=== PATIENT | female | born 1980 | race Caucasian/White ===

== ENCOUNTER → 2017-06-24 | Outpatient (CLI) | payer BC ==
[~2017-06-24] VITALS: Ht 165.1 cm; Wt 66.5 kg
[~2017-06-24] MED LIST: ALEVE 220MG220 MG PO; VOLTAREN SR25 MG/TAB PO
[2017-06-24 09:31] VITALS: BP 120/77; PULSE 53
[2017-06-24 10:35] VITALS: BP 123/75; PULSE 49
== END ==
LOC: COL.RAD 09:00
DX: M51.16 Intervertebral disc disorders with radiculopathy, lumbar region (principal); M48.061 Spinal stenosis, lumbar region without neurogenic claudication; M46.86 Other specified inflammatory spondylopathies, lumbar region
CPT/HCPCS: J3301

== ENCOUNTER → 2020-01-12 | Outpatient (CLI) | payer BC | LOC: MHCPAIN 10:20 | DX: M47.817 Spondylosis without myelopathy or radiculopathy, lumbosacral region (principal); M53.3 Sacrococcygeal disorders, not elsewhere classified; M54.5 Low back pain; G89.29 Other chronic pain | CPT/HCPCS: G0463 ==

== ENCOUNTER → 2020-01-24 | Outpatient (CLI) | payer BC | LOC: MHCPAIN 11:56 | DX: M47.817 Spondylosis without myelopathy or radiculopathy, lumbosacral region (principal); M54.5 Low back pain; G89.29 Other chronic pain ==

== ENCOUNTER → 2020-02-02 | Outpatient (CLI) | payer BC | LOC: MHCPAIN 14:42 | DX: M47.817 Spondylosis without myelopathy or radiculopathy, lumbosacral region (principal); M54.5 Low back pain; M53.3 Sacrococcygeal disorders, not elsewhere classified; G89.29 Other chronic pain | CPT/HCPCS: G0463 ==

== ENCOUNTER → 2020-02-14 | Outpatient (CLI) | payer BC | LOC: MHCPAIN 11:54 | DX: M47.817 Spondylosis without myelopathy or radiculopathy, lumbosacral region (principal); M54.5 Low back pain ==

== ENCOUNTER → 2020-03-02 | Outpatient (CLI) | payer BC | LOC: MHCPAIN 12:00 | DX: M47.817 Spondylosis without myelopathy or radiculopathy, lumbosacral region (principal); M54.5 Low back pain; M53.3 Sacrococcygeal disorders, not elsewhere classified; G89.29 Other chronic pain | CPT/HCPCS: G0463; J1100; J2250; J3010 ==

== ENCOUNTER → 2020-05-02 | Outpatient (CLI) | payer BC | LOC: MHCPAIN 10:31 | DX: M47.817 Spondylosis without myelopathy or radiculopathy, lumbosacral region (principal); M54.5 Low back pain; M53.3 Sacrococcygeal disorders, not elsewhere classified; G89.29 Other chronic pain | CPT/HCPCS: G0463 ==

== ENCOUNTER → 2020-09-14 | Outpatient (CLI) | payer OTHER | LOC: MC.RAD 10:00 | DX: Z12.31 Encounter for screening mammogram for malignant neoplasm of breast (principal) ==

== ENCOUNTER → 2021-09-14 | Outpatient (CLI) | payer BC | LOC: COL.RAD 08:33 | DX: M24.111 Other articular cartilage disorders, right shoulder (principal) | CPT/HCPCS: J3301; Q9967 ==

== ENCOUNTER → 2021-10-26 | Outpatient (CLI) | payer BC | LOC: MC.RAD 10-19 07:15 | DX: Z12.31 Encounter for screening mammogram for malignant neoplasm of breast (principal); Z00.00 Encounter for general adult medical examination without abnormal findings ==

== ENCOUNTER 2022-01-09 12:04 | Emergency (ER) | payer BC ==
[~2022-01-09] VITALS: Ht 165.1 cm; Wt 66.8 kg
[2022-01-09 12:53] LABS: BASO % 0.4 % (0.0-2.0); EOS # 0.1 K/mm3 (0.0-0.7); EOS % 1.1 % (0.0-4.0); GRAN % 66.6 % (42.2-75.2); HEMATOCRIT 40.8 % (37.0-47.0); HEMOGLOBIN 13.9 g/dl (12.5-16.0); LYMPH # 1.7 K/mm3 (1.2-3.4); MEAN CELL VOLUME 91 fl (80.0-100.0); MEAN CORPUSCULAR HEMOGLOBIN 31 pg (27-31); MEAN CORPUSCULAR HGB CONC 34 g/dl (33.0-37.0); MEAN PLATELET VOLUME 9.8 fl (7.4-10.4); MONO # 0.7 K/mm3 (0.1-0.6); MONO % 9.6 % (1.7-9.3); PLATELET COUNT 287 K/mm3 (130-400); RED BLOOD COUNT 4.49 M/mm3 (4.10-5.30); REDCELL DISTRIBUTION WIDTH-CV 12.5 % (11.5-14.5)
[2022-01-09 13:12] LABS: ALANINE AMINOTRANSFERASE 15 U/L (0-55); ALBUMIN 3.9 gm/dL (3.5-5.0); ALKALINE PHOSPHATASE 49 U/L (40-150); ANION GAP 12 mmol/L (7-16); AST,SGOT 18 U/L (5-34); BILIRUBIN,TOTAL 0.6 mg/dL (0.2-1.2); BLOOD UREA NITROGEN 12 mg/dL (7-19); CALCIUM 8.5 mg/dL (8.4-10.2); CARBON DIOXIDE 20 mmol/L (22-29); CHLORIDE 104 mmol/L (98-107); CREATININE, serum 0.72 mg/dL (0.57-1.11); GLUCOSE 118 mg/dL (70-99); POTASSIUM 3.9 mmol/L (3.5-4.5); SODIUM 136 mmol/L (136-145)
[2022-01-09 13:15] LABS: TRICYCLIC ANTIDEPRESS URINE NEGATIVE
[2022-01-09 13:20] LABS: TROPONIN-I < 0.010 ng/mL (0.00-0.033)
[2022-01-09 13:31] VITALS: TEMP 98.4
[2022-01-09 14:55] VITALS: BP 133/77; PULSE 89
== END 2022-01-09 14:55 | disposition home or self-care (01) ==
LOC: COL.ER 12:04
PROVIDERS: Physician Assistant
DX: F12.929 Cannabis use, unspecified with intoxication, unspecified (principal)
CPT/HCPCS: J2060; J7030

== ENCOUNTER → 2023-08-08 | Outpatient (CLI) | payer BC | LOC: MC.RAD 09:13 | DX: Z12.31 Encounter for screening mammogram for malignant neoplasm of breast (principal) ==

== ENCOUNTER → 2023-08-21 | Outpatient (CLI) | payer BC | LOC: COL.RAD 12:18 | DX: M25.551 Pain in right hip (principal) ==

== ENCOUNTER → 2023-08-21 | Outpatient (CLI) | payer BC | LOC: MHCPAIN 10:47 | DX: M54.50 Low back pain, unspecified (principal); M53.3 Sacrococcygeal disorders, not elsewhere classified; M51.36 Other intervertebral disc degeneration, lumbar region; M54.31 Sciatica, right side; M25.551 Pain in right hip | CPT/HCPCS: G0463 ==

== ENCOUNTER → 2023-10-23 | Outpatient (CLI) | payer BC | LOC: MHCPAIN 12:56 | DX: M54.50 Low back pain, unspecified (principal); M53.3 Sacrococcygeal disorders, not elsewhere classified; M79.18 Myalgia, other site; M54.31 Sciatica, right side; M25.551 Pain in right hip | CPT/HCPCS: G0463 ==

== ENCOUNTER → 2023-11-20 | Outpatient (CLI) | payer BC ==
[~2023-11-20] MED LIST changes: +Lidocaine PF 1% (10 MG/ML) 5 ML VIAL ONE; +Triamcinolone 40 MG/ML 1 ML VIAL ONE
== END ==
LOC: MHCPAIN 10:49
DX: M79.18 Myalgia, other site (principal); M54.31 Sciatica, right side
CPT/HCPCS: J3301

== ENCOUNTER → 2024-01-26 | Outpatient (CLI) | payer BC ==
[~2024-01-26] MED LIST changes: -Lidocaine PF 1% (10 MG/ML) 5 ML VIAL ONE; -Triamcinolone 40 MG/ML 1 ML VIAL ONE
== END ==
LOC: MHCPAIN 10:15
DX: M54.50 Low back pain, unspecified (principal); M53.3 Sacrococcygeal disorders, not elsewhere classified; M54.31 Sciatica, right side; M25.551 Pain in right hip
CPT/HCPCS: G0463

== ENCOUNTER → 2024-03-16 | Outpatient (CLI) | payer BC | LOC: MHCPAIN 14:18 | DX: M54.50 Low back pain, unspecified (principal); M25.551 Pain in right hip; M53.3 Sacrococcygeal disorders, not elsewhere classified; M54.31 Sciatica, right side; M51.36 Other intervertebral disc degeneration, lumbar region | CPT/HCPCS: G0463 ==